=== PATIENT | male | born 1955 | race African-American/Black ===

== ENCOUNTER 2018-08-20 15:40 | Inpatient (IN) | payer OTHER ==
[2018-08-20 18:50] VITALS: BMI 25.0
--- NOTE | 2018-08-20 20:32 | HP ---
CIWA Score Nausea/Vomitin-No Nausea/No Vomiting Muscle Tremors: None Anxiety: 4-Mod. Anxious/Guarded Agitation: 4-Moderately Restless Paroxysmal Sweats: No Perspiration Orientation: 0-Oriented Tacttile Disturbances: 0-None Auditory Disturbances: 0-None Visual Disturbances: 0-None Headache: 2-Mild CIWA-Ar Total Score: 10 - Admission Criteria OAS Guidelines: Admission for Medically Managed Detox: Requires at least one of the followin. CIWA greater than 12 2. Seizures within the past 24 hours 3. Delirium tremens within the past 24 hours 4. Hallucinations within the past 24 hours 5. Acute intervention needed for co occurring medical disorder 6. Acute intervention needed for co occurring psychiatric disorder 7. Severe withdrawal that cannot be handled at a lower level of care (continued vomiting, continued diarrhea, abnormal vital signs) requiring intravenous medication and/or fluids 8. Patient presents the following: Acute intervention needed for co-occurring med or psych disorder Admission Criteria Met: Admission criteria met Admission ROS [facility] Chief Complaint: C/O WITHDRAWAL SX'S. SEEKING DETOX Allergies/Adverse Reactions: Allergies Allergy/AdvReac Type Severity Reaction Status Date / Time No Known Allergies Allergy Verified 08/20/18 18:43 History of Present Illness: 63 Y.O. MALE WITH ALCOHOLISM AND CANNABIS, CRACK/COCAINE DEPENDENCE HERE FOR DETOX. CLIENT IS REFERRED BY HIS SRO PERSONNEL. PRESENTS WITH C/O WITHDRAWAL SX 'S. CIWA 10 WITH HX/O DM. REPORTS LAST DRINK THIS MORNING DRINKS QOD. REPORTS LONGEST SOBRIETY 6 YEARS. DENIES HX/O SEIZURES, SI/HI/AVH. SRO, DISABILITY, DENIES LEGALS. Exam Limitations: No Limitations - Ebola screening Have you traveled outside of the country in the last 21 days: No Have you had contact with anyone from an Ebola affected area: No Do you have a fever: No - Review of Systems Constitutional: No Symptoms Reported EENT: reports: Dental Problems (MISSING TEETH) Respiratory: reports: No Symptoms reported, Other (HX/O TB TXED W/ INH) Cardiac: reports: No Symptoms Reported GI: reports: No Symptoms Reported : reports: No Symptoms Reported Musculoskeletal: reports: Back Pain (CHRONIC) Integumentary: reports: No Symptoms Reported Neuro: reports: No Symptoms reported Endocrine: reports: Other (HX/O DM) Hematology: reports: No Symptoms Reported Psychiatric: reports: Orientated x3, Agitated (IRRITABLE), Anxious, Depressed ( DENIES SI/HI) Other Systems: Reviewed and Negative Patient History - Patient Medical History Hx Anemia: No Hx Asthma: No Hx Chronic Obstructive Pulmonary Disease (COPD): No Hx Cancer: No Hx Cardiac Disorders: No Hx Congestive Heart Failure: No Hx Hypertension: No Hx Hypercholesterolemia: No Hx Pacemaker: No HX Cerebrovascular Accident: No Hx Seizures: No Hx Dementia: No Hx Diabetes: Yes (NON COMPLAINT WITH METFORMIN 500 BID) Hx Gastrointestinal Disorders: No Hx Liver Disease: No Hx Genitourinary Disorders: No Hx Sexually Transmitted Disorders: No Hx Renal Disease (ESRD): No Hx Thyroid Disease: No Hx Human Immunodeficiency Virus (HIV): No Hx Hepatitis C: No Hx Depression: No Hx Suicide Attempt: No Hx Bipolar Disorder: No Hx Schizophrenia: No Other Medical History: DENIES - Patient Surgical History Past Surgical History: Yes Other Surgical History: LEFT INGUINAL HERNIA REPAIR Anesthesia Reaction: No - PPD History Previous Implant?: Yes Documented Results: Positive w/o proof Implanted On Prior [facility] Admission?: No PPD to be Administered?: No - Smoking Cessation Smoking history: Current every day smoker Have you smoked in the past 12 months: Yes Aproximately how many cigarettes per day: 6 Cigars Per Day: 0 Hx Chewing Tobacco Use: No Initiated information on smoking cessation: Yes 'Breaking Loose' booklet given: 08/20/18 - Substance & Tx. History Hx Alcohol Use: Yes Hx Substance Use: Yes Substance Use Type: Alcohol, Cocaine, Marijuana Hx Substance Use Treatment: Yes ([facility]) - Substances abused Alcohol Substance route: Oral Frequency: 3-6 times per week Amount used: liquor- 3 pint, beer- 1 six pack Age of first use: 16 Date of last use: 08/20/18 Marijuana/Hashish Substance route: Smoking Frequency: Daily Amount used: 3 blunts Age of first use: 18 Date of last use: 08/19/18 Crack Substance route: Smoking Frequency: Daily Amount used: $100 worth Age of first use: 31 Date of last use: 08/20/18 Family Disease History - Family Disease History Family Disease History: Diabetes: Mother (), CA: Father (DRUG/ALCOHOL/ GASTRIC CA-), Other: Father Admission Physical Exam [facility]HS - Vital Signs Vital Signs: Vital Signs - 24 hr 05/03/19 05/03/19 18:43 19:43 Temperature 99 F 99 F Pulse Rate 99 H 99 H Respiratory 20 20 Rate Blood Pressure 115/66 115/66 - Physical General Appearance: Yes: Anxious HEENTM: Yes: EOMI, Normocephalic, ANTONIO, Pharynx Normal, Other (TOP DENTURES) Respiratory: Yes: Chest Non-Tender, Lungs Clear, Normal Breath Sounds, No Respiratory Distress, No Accessory Muscle Use Neck: Yes: No masses,lesions,Nodules, Supple, Other (DECREASE ROM 2/2 TO ACUTE PAIN) Breast: Yes: Other (NL INSPECTION) Cardiology: Yes: Regular Rhythm, Regular Rate, S1, S2 Abdominal: Yes: Normal Bowel Sounds, Non Tender, Flat, Soft Genitourinary: Yes: Within Normal Limits (NO C/O) Back: Yes: Normal Inspection Musculoskeletal: Yes: Other (LEFT WRIST CHRONIC PAIN. HAS SOFT BRACE) Extremities: Yes: Normal Range of Motion, Non-Tender Neurological: Yes: Fully Oriented, Alert, Motor Strength 5/5, Depressed Affect Integumentary: Yes: Dry, Warm Lymphatic: Yes: Within Normal Limits - Diagnostic (1) Alcohol dependence with uncomplicated withdrawal Current Visit: Yes Status: Acute (2) Cocaine abuse, uncomplicated Current Visit: Yes Status: Acute (3) Cannabis abuse, uncomplicated Current Visit: Yes Status: Acute (4) Diabetes Current Visit: Yes Status: Chronic Qualifiers: Diabetes mellitus type: type 2 (5) Nicotine dependence Current Visit: Yes Status: Chronic Qualifiers: Nicotine product type: cigarettes Substance use status: uncomplicated Qualified Code(s): F17.210 - Nicotine dependence, cigarettes, uncomplicated (6) Non compliance w medication regimen Current Visit: Yes Status: Chronic (7) History of positive PPD Current Visit: Yes Status: Chronic (8) Substance induced mood disorder Current Visit: Yes Status: Chronic Cleared for Admission S - Detox or Rehab S Level of Care: Medically Managed Detox Regimen/Protocol: Librium Claeared for Rehab Admission: No Breathalyzer - Breathalyzer Breathalyzer: 0 Urine Drug Screen - Test Device Lot number: [id number] Expiration date: 03/19/20 - Control Is test valid?: Yes - Results Drug screen NEGATIVE: No Urine drug screen results: THC-Marijuana, CLEMENTINA-Cocaine, BZO-Benzodiazepines Inpatient Rehab Admission - Rehab Decision to Admit Inpatient rehab admission?: No
[2018-08-20] MEDS ORDERED: BISMUTH SUBSALICYLATE 524 MG/30 ML UD PO PRN (20:37)
[2018-08-20] MEDS ORDERED: IBUPROFEN 400 MG TABLET (FP) PO PRN ×2 (20:37)
[2018-08-20] MEDS ORDERED: NICOTINE POLACRILEX 2 MG GUM BUC PRN (20:37)
[2018-08-20] MEDS ORDERED: P-EPHED 60MG/TRIPROLIDI 2.5MG TABLET PO PRN (20:37)
[2018-08-20] MEDS ORDERED: MELATONIN 5 MG TABLETS PO PRN (20:37)
[2018-08-20] MEDS ORDERED: ACETAMINOPHEN 325 MG TABLET (FP) PO PRN ×2 (20:37)
[2018-08-20] MEDS ORDERED: DICYCLOMINE HCL 10 MG CAPSULE PO PRN (20:37)
[2018-08-20] MEDS ORDERED: MAG HYDROX/AL HYDROX/SIMETH 30 ML UNIT-DOSE CUP PO PRN (20:37)
[2018-08-20] MEDS ORDERED: hydrOXYzine PAMOATE 25 MG CAPSULE (FP) PO PRN (20:37)
[2018-08-20] MEDS ORDERED: MAGNESIUM HYDROX 2400MG/30ML ORAL SUSPENSION 30 ML CUP PO PRN (20:37)
[2018-08-20] MEDS ORDERED: MAGNESIUM CITRATE 300 ML BOTTLE PO PRN (20:37)
[2018-08-20] MEDS ORDERED: guaiFENesin 200 MG/10 ML 10 ML UNIT-DOSE CUPS PO PRN (20:37)
[2018-08-20] MEDS ORDERED: ONDANSETRON *ODT* 4 MG TABLET SL PRN (20:37)
[2018-08-20] MEDS ORDERED: chlordiazePOXIDE HCL 10 MG CAPSULE PO PRN (20:37)
[2018-08-20] MEDS ORDERED: MENTHOL/PHENOL 1 EACH UD MM PRN (20:37)
[2018-08-20] MEDS: chlordiazePOXIDE HCL 25 MG CAPSULE PO SCH (21:42)
[2018-08-20] MEDS: THIAMINE HCL 100 MG TABLET (FP) PO SCH (21:42)
[2018-08-21] MEDS: METHOCARBAMOL 500 MG TABLET PO PRN (02:41)
[2018-08-21] MEDS: chlordiazePOXIDE HCL 25 MG CAPSULE PO SCH ×2 (05:07→13:43)
--- NOTE | 2018-08-21 08:26 | EKG ---
Test Reason : Blood Pressure : / mmHG Vent. Rate : 085 BPM Atrial Rate : 085 BPM P-R Int : 172 ms QRS Dur : 092 ms QT Int : 354 ms P-R-T Axes : 061 000 015 degrees QTc Int : 421 ms NORMAL SINUS RHYTHM NONSPECIFIC T WAVE ABNORMALITY ABNORMAL ECG NO PREVIOUS ECGS AVAILABLE Confirmed by ODESSA MOSES, BRITTNY ([id number]) on 08/21/2018 8:26:15 AM Referred By: Confirmed By:BRITTNY SAXENA MD
[2018-08-21 10:24] LABS: HEMATOCRIT 37.8 % (35.4-49); HEMOGLOBIN 11.6 GM/dL (11.7-16.9); MCHC 30.8 g/dl (32.0-35.9); MEAN CELL VOLUME 63.2 fl (80-96); MEAN PLT VOLUME 8.8 fl (7.5-11.1); PLATELET COUNT 236 K/MM3 (134-434); RBC 5.98 M/mm3 (4.00-5.60); RDW 16.2 % (11.9-15.9); WHITE BLOOD COUNT 5.6 K/mm3 (4.0-10.0)
[2018-08-21] MEDS: PRENATAL VITAMINS W/ FOLIC ACID TABLET (FP) PO SCH (10:25)
[2018-08-21] MEDS: NICOTINE 14 MG/24 HOURS TOPICAL PATCH TD SCH (10:25)
[2018-08-21 10:27] LABS: MCH 19.5 pg (25.7-33.7)
[2018-08-21 12:04] LABS: ALBUMIN 3.2 g/dl (3.4-5.0); ALK PHOS 46 U/L (45-117); ANION GAP 6 MMOL/L (8-16); BILIRUBIN,TOTAL 0.3 mg/dL (0.2-1); BLOOD UREA NITROGEN 16 mg/dL (7-18); CALCIUM 8.5 mg/dL (8.5-10.1); CHLORIDE 108 mmol/L (98-107); CO2 29 mmol/L (21-32); CREATININE 0.9 mg/dL (0.55-1.3); GLUCOSE,RANDOM 103 mg/dL (74-106); POTASSIUM 3.9 mmol/L (3.5-5.1); SGOT/AST 13 U/L (15-37); SGPT/ALT 21 U/L (13-61); SODIUM 143 mmol/L (136-145); TOT PROT 6.8 g/dl (6.4-8.2)
--- NOTE | 2018-08-21 12:53 | PN ---
S CIWA - CIWA Score Nausea/Vomitin-No Nausea/No Vomiting Muscle Tremors: 2 Anxiety: 4-Mod. Anxious/Guarded Agitation: 2 Paroxysmal Sweats: 2 Orientation: 0-Oriented Tacttile Disturbances: 0-None Auditory Disturbances: 0-None Visual Disturbances: 0-None Headache: 0-None Present CIWA-Ar Total Score: 10 BHS Progress Note (SOAP) Subjective: PT C/O FATIGUE AND SWEATS. Objective: 08/21/18 12:59 Vital Signs 08/21/18 08/21/18 06:15 09:21 Temperature 97.3 F L 97.1 F L Pulse Rate 72 85 Respiratory 18 18 Rate Blood Pressure 122/74 121/60 Laboratory Tests 08/21/18 08/21/18 08/21/18 05:08 07:45 08:00 WBC 5.6 RBC 5.98 H Hgb 11.6 L Hct 37.8 MCV 63.2 L MCH 19.5 L MCHC 30.8 L RDW 16.2 H Plt Count 236 MPV 8.8 Sodium 143 Potassium 3.9 Chloride 108 H Carbon Dioxide 29 Anion Gap 6 L BUN 16 Creatinine 0.9 Creat Clearance w eGFR 85.50 POC Glucometer 94 Random Glucose 103 Calcium 8.5 Total Bilirubin 0.3 AST 13 L ALT 21 Alkaline Phosphatase 46 Total Protein 6.8 Albumin 3.2 L Assessment: 08/21/18 12:59 WITHDRAWAL SX Plan: CONTINUE DETOX INCREASE PO FLUIDS. REPEAT CBC ON 08/23/18 CXR ON 08/23/18 -HX PPD+
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
[2018-08-21 17:25] LABS: EPI CELLS 3.3 /HPF (0-5/HPF); PH,URINE 5.5 (5.0-8.0); URINE APPEARANCE TURBID; URINE BACTERIA 113.5 /hpf (NEGATIVE); URINE BILIRUBIN NEGATIVE (NEGATIVE); URINE CASTS 34 /lpf (0-8); URINE COLOR YELLOW; URINE GLUCOSE (UA) NEGATIVE (NEGATIVE); URINE KETONE TRACE (NEGATIVE); URINE LEUK ESTERASE 2+ (NEGATIVE); URINE NITRITE NEGATIVE (NEGATIVE); URINE PROTEIN NEGATIVE (NEGATIVE); URINE RBC 1 /hpf (0-4); URINE UROBILINOGEN 0.2 mg/dL (0.2-1.0); URINE WBC 26 /hpf (0-5)
[2018-08-21 18:05] LABS: URINE CRYSTALS RARE CALCIUM OXALATE /hpf
[2018-08-21] MEDS: METHYL SALICYLATE/MENTHOL OINT 30 GM TUBE TP SCH (22:09)
[2018-08-21] MEDS: ARIPiprazole 5 MG TABLET (FP) PO SCH (22:59)
[2018-08-21] MEDS: chlordiazePOXIDE 5 MG CAPSULE PO SCH (22:59)
[2018-08-21] MEDS: THIAMINE HCL 100 MG TABLET (FP) PO SCH (22:59)
[2018-08-22] MEDS: chlordiazePOXIDE 5 MG CAPSULE PO SCH ×2 (05:04→13:56)
[2018-08-22] MEDS: NICOTINE 14 MG/24 HOURS TOPICAL PATCH TD SCH (10:10)
[2018-08-22] MEDS: PRENATAL VITAMINS W/ FOLIC ACID TABLET (FP) PO SCH (10:10)
[2018-08-22] MEDS: METHYL SALICYLATE/MENTHOL OINT 30 GM TUBE TP SCH ×2 (10:10→22:18)
[2018-08-22] MEDS: SERTRALINE HCL 50 MG TABLET (FP) PO SCH (10:10)
[2018-08-22] MEDS: METHOCARBAMOL 500 MG TABLET PO PRN (10:12)
[2018-08-22 12:05] LABS: RPR REACTIVE 1:1 (NONREACTIVE)
--- NOTE | 2018-08-22 12:50 | PN ---
[facility] CIWA - CIWA Score Nausea/Vomitin-No Nausea/No Vomiting Muscle Tremors: 2 Anxiety: 1-Mildly Anxious Agitation: 2 Paroxysmal Sweats: 1-Minimal Palms Moist Orientation: 0-Oriented Tacttile Disturbances: 0-None Auditory Disturbances: 0-None Visual Disturbances: 0-None Headache: 0-None Present CIWA-Ar Total Score: 6 S Progress Note (SOAP) Subjective: right shoulder pain x "months" pain on are raised parallel to the ground skin intact no swell mild tenderness on post rotating motion x ray of the right shoulder along with chest x ray due to positive ppd Objective: 08/22/18 12:52 Vital Signs Temperature 96 F L 08/22/18 09:25 Pulse Rate 69 08/22/18 09:25 Respiratory Rate 18 08/22/18 09:25 Blood Pressure 114/64 08/22/18 09:25 O2 Sat by Pulse Oximetry (%) Laboratory Last Values WBC 5.6 K/mm3 (4.0-10.0) 08/21/18 08:00 RBC 5.98 M/mm3 (4.00-5.60) H 08/21/18 08:00 Hgb 11.6 GM/dL (11.7-16.9) L 08/21/18 08:00 Hct 37.8 % (35.4-49) 08/21/18 08:00 MCV 63.2 fl (80-96) L 08/21/18 08:00 MCH 19.5 pg (25.7-33.7) L 08/21/18 08:00 MCHC 30.8 g/dl (32.0-35.9) L 08/21/18 08:00 RDW 16.2 % (11.9-15.9) H 08/21/18 08:00 Plt Count 236 K/MM3 (134-434) 08/21/18 08:00 MPV 8.8 fl (7.5-11.1) 08/21/18 08:00 Sodium 143 mmol/L (136-145) 08/21/18 07:45 Potassium 3.9 mmol/L (3.5-5.1) 08/21/18 07:45 Chloride 108 mmol/L (98-107) H 08/21/18 07:45 Carbon Dioxide 29 mmol/L (21-32) 08/21/18 07:45 Anion Gap 6 MMOL/L (8-16) L 08/21/18 07:45 BUN 16 mg/dL (7-18) 08/21/18 07:45 Creatinine 0.9 mg/dL (0.55-1.3) 08/21/18 07:45 Creat Clearance w eGFR 85.50 (>60) 08/21/18 07:45 POC Glucometer 114 UNITS (80-120) 08/22/18 06:34 Random Glucose 103 mg/dL (74-106) 08/21/18 07:45 Calcium 8.5 mg/dL (8.5-10.1) 08/21/18 07:45 Total Bilirubin 0.3 mg/dL (0.2-1) 08/21/18 07:45 AST 13 U/L (15-37) L 08/21/18 07:45 ALT 21 U/L (13-61) 08/21/18 07:45 Alkaline Phosphatase 46 U/L (45-117) 08/21/18 07:45 Total Protein 6.8 g/dl (6.4-8.2) 08/21/18 07:45 Albumin 3.2 g/dl (3.4-5.0) L 08/21/18 07:45 Urine Color Yellow 08/21/18 12:51 Urine Appearance Turbid 08/21/18 12:51 Urine pH 5.5 (5.0-8.0) 08/21/18 12:51 Ur Specific [place] 1.026 (1.010-1.035) 08/21/18 12:51 Urine Protein Negative (NEGATIVE) 08/21/18 12:51 Urine Glucose (UA) Negative (NEGATIVE) 08/21/18 12:51 Urine Ketones Trace (NEGATIVE) H 08/21/18 12:51 Urine Blood Negative (NEGATIVE) 08/21/18 12:51 Urine Nitrite Negative (NEGATIVE) 08/21/18 12:51 Urine Bilirubin Negative (NEGATIVE) 08/21/18 12:51 Urine Urobilinogen 0.2 mg/dL (0.2-1.0) 08/21/18 12:51 Ur Leukocyte Esterase 2+ (NEGATIVE) H 08/21/18 12:51 Urine WBC (Auto) 26 /hpf (0-5) 08/21/18 12:51 Urine RBC (Auto) 1 /hpf (0-4) 08/21/18 12:51 Urine Casts (Auto) 34 /lpf (0-8) 08/21/18 12:51 U Epithel Cells (Auto) 3.3 /HPF (0-5/HPF) 08/21/18 12:51 Urine Crystals (Auto) Rare calcium oxalate /hpf 08/21/18 12:51 Urine Bacteria (Auto) 113.5 /hpf (NEGATIVE) 08/21/18 12:51 RPR Titer Reactive 1:1 (NONREACTIVE) H 08/21/18 07:45 lab noted uti Assessment: 08/22/18 12:53 alcohol withdrawal sx uti Plan: continue detox bactrim ds bid x 5 days
[2018-08-22] MEDS: SULFAMETHOXAZOLE/TRIMETHOPRIM 800MG/160MG D.S. TABLET PO SCH ×2 (13:56→22:17)
[2018-08-22 14:52] LABS: TREPONEMA ANTIBODY NON REACTIVE (NONREACTIVE)
[2018-08-22] MEDS ORDERED: chlordiazePOXIDE HCL 10 MG CAPSULE PO PRN (21:00)
[2018-08-22] MEDS: chlordiazePOXIDE HCL 10 MG CAPSULE PO SCH (22:17)
[2018-08-22] MEDS: ARIPiprazole 5 MG TABLET (FP) PO SCH (22:17)
[2018-08-22] MEDS: THIAMINE HCL 100 MG TABLET (FP) PO SCH (22:17)
[2018-08-23] MEDS: chlordiazePOXIDE HCL 10 MG CAPSULE PO SCH ×2 (05:32→13:27)
[2018-08-23 09:18] VITALS: BP 160/81; PULSE 71; TEMP 97
[2018-08-23] MEDS: METHYL SALICYLATE/MENTHOL OINT 30 GM TUBE TP SCH (09:45)
[2018-08-23] MEDS: PRENATAL VITAMINS W/ FOLIC ACID TABLET (FP) PO SCH (09:45)
[2018-08-23] MEDS: SERTRALINE HCL 50 MG TABLET (FP) PO SCH (09:45)
[2018-08-23] MEDS: SULFAMETHOXAZOLE/TRIMETHOPRIM 800MG/160MG D.S. TABLET PO SCH (09:45)
[2018-08-23] MEDS: NICOTINE 14 MG/24 HOURS TOPICAL PATCH TD SCH (09:46)
[2018-08-23 10:16] LABS: HEMATOCRIT 37.2 % (35.4-49); HEMOGLOBIN 11.5 GM/dL (11.7-16.9); MCHC 30.8 g/dl (32.0-35.9); MEAN CELL VOLUME 62.7 fl (80-96); MEAN PLT VOLUME 8.1 fl (7.5-11.1); PLATELET COUNT 254 K/MM3 (134-434); RBC 5.92 M/mm3 (4.00-5.60); RDW 16.3 % (11.9-15.9); WHITE BLOOD COUNT 6.3 K/mm3 (4.0-10.0)
[2018-08-23 11:02] LABS: MCH 19.3 pg (25.7-33.7)
--- NOTE | 2018-08-23 15:08 | DS ---
[facility] Detox Discharge Summary Admission Date: 08/20/18 Discharge Date: 08/23/18 - History Present History: Alcohol Dependence Additional Comments: 63 years old male admitted on 08/20/18 for alcohol withdrawal stabilization completed detox regimen aftercare elevation core recovery patient has positive ppd chest x ray done today 08/23/18 report right shoulder pain "months" x ray done today 08/23/18 Pertinent Past History: patient lives in [place] encourage the patient to obtain x ray result from radiology department - Physical Exam Results Vital Signs: Vital Signs Temperature 97.0 F L 08/23/18 09:17 Pulse Rate 71 08/23/18 09:17 Respiratory Rate 20 08/23/18 09:17 Blood Pressure 160/81 08/23/18 09:17 O2 Sat by Pulse Oximetry (%) Pertinent Admission Physical Exam Findings: alcohol withdrawal sx Laboratory Last Values WBC 6.3 K/mm3 (4.0-10.0) 08/23/18 07:00 RBC 5.92 M/mm3 (4.00-5.60) H 08/23/18 07:00 Hgb 11.5 GM/dL (11.7-16.9) L 08/23/18 07:00 Hct 37.2 % (35.4-49) 08/23/18 07:00 MCV 62.7 fl (80-96) L 08/23/18 07:00 MCH 19.3 pg (25.7-33.7) L 08/23/18 07:00 MCHC 30.8 g/dl (32.0-35.9) L 08/23/18 07:00 RDW 16.3 % (11.9-15.9) H 08/23/18 07:00 Plt Count 254 K/MM3 (134-434) 08/23/18 07:00 MPV 8.1 fl (7.5-11.1) 08/23/18 07:00 Sodium 143 mmol/L (136-145) 08/21/18 07:45 Potassium 3.9 mmol/L (3.5-5.1) 08/21/18 07:45 Chloride 108 mmol/L (98-107) H 08/21/18 07:45 Carbon Dioxide 29 mmol/L (21-32) 08/21/18 07:45 Anion Gap 6 MMOL/L (8-16) L 08/21/18 07:45 BUN 16 mg/dL (7-18) 08/21/18 07:45 Creatinine 0.9 mg/dL (0.55-1.3) 08/21/18 07:45 Creat Clearance w eGFR 85.50 (>60) 08/21/18 07:45 POC Glucometer 98 UNITS (80-120) 08/23/18 05:31 Random Glucose 103 mg/dL (74-106) 08/21/18 07:45 Calcium 8.5 mg/dL (8.5-10.1) 08/21/18 07:45 Total Bilirubin 0.3 mg/dL (0.2-1) 08/21/18 07:45 AST 13 U/L (15-37) L 08/21/18 07:45 ALT 21 U/L (13-61) 08/21/18 07:45 Alkaline Phosphatase 46 U/L (45-117) 08/21/18 07:45 Total Protein 6.8 g/dl (6.4-8.2) 08/21/18 07:45 Albumin 3.2 g/dl (3.4-5.0) L 08/21/18 07:45 Urine Color Yellow 08/21/18 12:51 Urine Appearance Turbid 08/21/18 12:51 Urine pH 5.5 (5.0-8.0) 08/21/18 12:51 Ur Specific [place] 1.026 (1.010-1.035) 08/21/18 12:51 Urine Protein Negative (NEGATIVE) 08/21/18 12:51 Urine Glucose (UA) Negative (NEGATIVE) 08/21/18 12:51 Urine Ketones Trace (NEGATIVE) H 08/21/18 12:51 Urine Blood Negative (NEGATIVE) 08/21/18 12:51 Urine Nitrite Negative (NEGATIVE) 08/21/18 12:51 Urine Bilirubin Negative (NEGATIVE) 08/21/18 12:51 Urine Urobilinogen 0.2 mg/dL (0.2-1.0) 08/21/18 12:51 Ur Leukocyte Esterase 2+ (NEGATIVE) H 08/21/18 12:51 Urine WBC (Auto) 26 /hpf (0-5) 08/21/18 12:51 Urine RBC (Auto) 1 /hpf (0-4) 08/21/18 12:51 Urine Casts (Auto) 34 /lpf (0-8) 08/21/18 12:51 U Epithel Cells (Auto) 3.3 /HPF (0-5/HPF) 08/21/18 12:51 Urine Crystals (Auto) Rare calcium oxalate /hpf 08/21/18 12:51 Urine Bacteria (Auto) 113.5 /hpf (NEGATIVE) 08/21/18 12:51 RPR Titer Reactive 1:1 (NONREACTIVE) H 08/21/18 07:45 T.pallidum Ab (MHA) Non reactive (NONREACTIVE) 08/21/18 07:45 lab noted Vital Signs Temperature 97.0 F L 08/23/18 09:17 Pulse Rate 71 08/23/18 09:17 Respiratory Rate 20 08/23/18 09:17 Blood Pressure 160/81 08/23/18 09:17 O2 Sat by Pulse Oximetry (%) - Treatment Hospital Course: Detox Protocol Followed, Detoxed Safely, Responded well, Discharged Condition Good, Rehab Referral Accepted Patient has Accepted a Rehab Referral to: [facility] - Medication Discharge Medications: Ambulatory Orders Sulfamethoxazole/Trimethoprim [Bactrim DS -] 1 each PO BID #10 tablet 08/22/18 Aripiprazole [Abilify -] 5 mg PO DAILY #30 tablet 08/23/18 Sertraline HCl [Zoloft -] 50 mg PO DAILY #30 tablet 08/23/18 - Diagnosis (1) Alcohol dependence with uncomplicated withdrawal Status: Acute (2) Positive PPD Status: Resolved (3) Diabetes Status: Chronic Qualifiers: Diabetes mellitus type: type 2 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: without residential use Diabetes mellitus complication status: with unspecified complications Qualified Code(s): E11.8 - Type 2 diabetes mellitus with unspecified complications (4) Nicotine dependence Status: Acute Qualifiers: Nicotine product type: cigarettes Substance use status: in withdrawal Qualified Code(s): F17.213 - Nicotine dependence, cigarettes, with withdrawal (5) Substance induced mood disorder Status: Suspected (6) Hypertension Status: Chronic Qualifiers: Hypertension type: essential hypertension Qualified Code(s): I10 - Essential (primary) hypertension - AMA Did Patient Leave Against Medical Advice: No
== END 2018-08-23 13:55 | disposition home or self-care (01) | DRG 774 ==
LOC: YASAS 15:40 → Y3N 20:36
PROVIDERS: ADMIT Surgery; ATTEND Surgery
PROC: HZ2ZZZZ Detoxification Services for Substance Abuse Treatment (ICD-10-PCS; principal; 2018-08-20)
DX: F10.230 Alcohol dependence with withdrawal, uncomplicated (principal); F14.20 Cocaine dependence, uncomplicated; F12.20 Cannabis dependence, uncomplicated; F17.213 Nicotine dependence, cigarettes, with withdrawal; F19.24 Other psychoactive substance dependence with psychoactive substance-induced mood disorder; F31.9 Bipolar disorder, unspecified; I10 Essential (primary) hypertension; E11.9 Type 2 diabetes mellitus without complications; Z79.84 Long term (current) use of oral hypoglycemic drugs; N39.0 Urinary tract infection, site not specified; R76.11 Nonspecific reaction to tuberculin skin test without active tuberculosis; Z91.19 Patient's noncompliance with other medical treatment and regimen
CPT/HCPCS: 36415; 71046-TC-FY; 73030-TC-RT-FY; 80053; 81003; 82962; 85027; 86593; 86780; 93005; 93010